=== PATIENT | female | born 1965 | race Caucasian/White ===

== ENCOUNTER 2018-02-19 20:30 | Emergency (ER) | payer MEDICAID ==
[~2018-02-19] VITALS: Ht 160 cm; Wt 113.4 kg
[~2018-02-19 20:30] MED LIST: ARIP1TAB5; CARI-277; PROZAC; [UNRECOGNIZED DRUG - OTHER]
[2018-02-19] MEDS ORDERED: diphenhdrAMINE HCL 25 MG CAP PO ONE (20:45)
[2018-02-19 21:15] LABS: Basophils # (auto) 0.1 uL; Basophils % (auto) 0.7 % (0.0-2.0); Eosinophils # (auto) 0.3 uL; Eosinophils % (auto) 3.3 % (0.0-7.0); Hematocrit 44.8 % (36.0-46.0); Lymphocytes # (auto) 3.4 uL; Lymphocytes % (auto) 35.4 % (10.0-50.0); Mean Corpuscular Hemoglobin 28.9 pg (28.0-32.0); Mean Corpuscular Hgb Conc. 33.4 g/dL (32.0-36.0); Mean Corpuscular Volume 86.3 fL (80.0-100.0); Monocytes # (auto) 0.9 uL; Monocytes % (auto) 9.2 % (0.0-12.0); Neutrophils % (auto) 51.4 % (37.0-80.0); Platelet Count (auto) 215 10^3/uL (140-450); Red Blood Cells 5.19 10^6/uL (4.0-5.20); Red Cell Distribution Width 14.2 % (11.8-14.3); White Blood Cell 9.7 10^3/uL (4.4-10.8)
[2018-02-19 21:16] VITALS: BP 137/77
[2018-02-19 21:31] LABS: Albumin 3.4 g/dL (3.4-5.0); BUN/Creatinine Ratio 23.5; Calcium 8.8 mg/dL (8.5-10.1); Potassium 4.1 mmol/L (3.5-5.1)
[2018-02-19 21:34] LABS: Bilirubin, Total 0.4 mg/dL (0.2-1.0); Total Protein 7.6 g/dL (6.4-8.2)
[2018-02-19] MEDS ORDERED: EPINEPHrine HCL 1 MG/1 ML AMP ONE (21:56)
[2018-02-19] MEDS ORDERED: FAMOTIDINE (10MG/ML) 2ML VL IV ONE (22:00)
[2018-02-19] MEDS ORDERED: LORATADINE 10 MG TAB PO ONE (22:00)
[2018-02-19] MEDS ORDERED: EPINEPHrine HCL 1 MG/1 ML AMP SC ONE (22:00)
[2018-02-19] MEDS ORDERED: SODIUM CHLORIDE 0.9% 1,000 ML IV ONE (22:00)
== END 2018-02-19 23:13 | disposition home or self-care (01) ==
LOC: ER 20:30
DX: T78.40XA Allergy, unspecified, initial encounter (principal); R22.0 Localized swelling, mass and lump, head; X58.XXXA Exposure to other specified factors, initial encounter
CPT/HCPCS: 36415; 70486; 80053; 85025; 96372; 96374; 99284; J0171; J3490; J7030

== ENCOUNTER 2019-06-22 12:47 | Emergency (ER) | payer MEDICAID ==
[~2019-06-22] VITALS: Ht 157.5 cm; Wt 95.3 kg
[2019-06-22 13:38] VITALS: BP 116/74
[2019-06-22 13:54] LABS: Urine Bacteria FEW /hpf (None Seen); Urine Blood 1+ /uL (Negative); Urine Hyaline Cast FEW /lpf (0 - 2); Urine Specific Gravity 1.025 (1.001-1.035); Urine WBC 5 /hpf (0 - 5)
== END 2019-06-22 14:49 | disposition home or self-care (01) ==
LOC: ER 12:47
DX: N39.0 Urinary tract infection, site not specified (principal); M19.90 Unspecified osteoarthritis, unspecified site
CPT/HCPCS: 81001

== ENCOUNTER 2019-08-15 19:38 | Inpatient (IN) | payer MEDICAID ==
[~2019-08-15] VITALS: Ht 157.5 cm; Wt 97.1 kg
[2019-08-15 21:00] LABS: Basophils # (auto) 0 10 ^3/uL (0-0.2); Basophils % (auto) 0.4 % (0.0-2.0); Eosinophils # (auto) 0.1 10 ^3/uL (0-0.8); Eosinophils % (auto) 1.2 % (0.0-7.0); Hematocrit 48.6 % (36.0-46.0); Hemoglobin 16.1 g/dL (12.2-16.2); Lymphocytes # (auto) 2.5 10 ^3/uL (0.4-5.4); Lymphocytes % (auto) 21.7 % (10.0-50.0); Mean Corpuscular Hemoglobin 28.3 pg (28.0-32.0); Mean Corpuscular Hgb Conc. 33.1 g/dL (32.0-36.0); Mean Corpuscular Volume 85.5 fL (80.0-100.0); Monocytes # (auto) 1.1 10 ^3/uL (0-1.3); Monocytes % (auto) 9.5 % (0.0-12.0); Neutrophils # (auto) 7.6 10 ^3/uL (1.6-8.6); Neutrophils % (auto) 67.2 % (37.0-80.0); Nucleated Red Blood Cells % 0.1 %; Platelet Count (auto) 159 10^3/uL (140-450); Red Blood Cells 5.69 10^6/uL (4.0-5.20); Red Cell Distribution Width 13.6 % (11.8-14.3); White Blood Cell 11.3 10^3/uL (4.4-10.8)
[2019-08-15 21:20] LABS: Urine Bacteria NONE SEEN /hpf (None Seen); Urine Blood 1+ /uL (Negative); Urine Mucus FEW (None Seen); Urine Specific Gravity 1.031 (1.001-1.035); Urine WBC 5 /hpf (0 - 5)
[2019-08-15 21:23] LABS: Alanine Aminotransferase 50 U/L (13-56); Albumin 3.5 g/dL (3.4-5.0); Amylase 55 U/L (25-115); Anion Gap 5 (5-15); Aspartate Aminotransferase 31 U/L (15-37); BUN/Creatinine Ratio 22.2; Blood Urea Nitrogen 24 mg/dL (7-18); Calcium 8.9 mg/dL (8.5-10.1); Carbon Dioxide 25 mmol/L (21-32); Chloride 107 mmol/L (98-107); GFR African American 68 mL/min; GFR Non-African American 56 mL/min; Glucose 104 mg/dL (74-106); Lipase 102 U/L (73-393); Potassium 4.1 mmol/L (3.5-5.1); Sodium 137 mmol/L (136-145)
[2019-08-15 21:25] LABS: Alkaline Phosphatase 108 U/L (45-117); Bilirubin, Total 0.4 mg/dL (0.2-1.0)
[2019-08-15] MEDS ORDERED: TAMSULOSIN HYDROCHLORIDE 0.4 MG CAP PO ONE (21:45)
[2019-08-15] MEDS ORDERED: cefTRIAXone 1GM/50ML D5W 50 ML IV ONE (21:45)
[2019-08-15] MEDS ORDERED: KETOROLAC TROMETH 30 MG/ML 1ML VIAL IV ONE (21:45)
[2019-08-15] MEDS ORDERED: SODIUM CHLORIDE 0.9% 1,000 ML IV ONE (21:45)
[2019-08-15] MEDS ORDERED: ACETAMINOPHEN 325 MG TAB PO PRN (22:15)
[2019-08-15] MEDS ORDERED: ONDANSETRON HCL 4 MG/2 ML VIAL IV PRN (22:15)
[2019-08-15] MEDS ORDERED: TEMAZEPAM 15 MG CAP PO PRN (22:15)
[2019-08-16] VITALS (7 sets, daily range): BP systolic 75–134; BP diastolic 45–74
[2019-08-16 06:07] LABS: Basophils # (auto) 0 10 ^3/uL (0-0.2); Basophils % (auto) 0.4 % (0.0-2.0); Eosinophils # (auto) 0.2 10 ^3/uL (0-0.8); Eosinophils % (auto) 2.5 % (0.0-7.0); Hematocrit 43.2 % (36.0-46.0); Hemoglobin 14.3 g/dL (12.2-16.2); Lymphocytes # (auto) 2.3 10 ^3/uL (0.4-5.4); Mean Corpuscular Hemoglobin 28.6 pg (28.0-32.0); Mean Corpuscular Hgb Conc. 33.2 g/dL (32.0-36.0); Mean Corpuscular Volume 86.2 fL (80.0-100.0); Monocytes # (auto) 0.8 10 ^3/uL (0-1.3); Monocytes % (auto) 11.4 % (0.0-12.0); Neutrophils # (auto) 3.8 10 ^3/uL (1.6-8.6); Neutrophils % (auto) 53.7 % (37.0-80.0); Nucleated Red Blood Cells % 0.1 %; Platelet Count (auto) 137 10^3/uL (140-450); Red Blood Cells 5.01 10^6/uL (4.0-5.20); Red Cell Distribution Width 13.4 % (11.8-14.3)
[2019-08-16 06:29] LABS: BUN/Creatinine Ratio 26.3; Calcium 8.7 mg/dL (8.5-10.1); Potassium 3.9 mmol/L (3.5-5.1)
[2019-08-16] MEDS: cefTRIAXone 1GM/50ML D5W 50 ML IV SCH (09:24)
[2019-08-16] MEDS: FAMOTIDINE 20 MG TAB PO SCH ×2 (09:24→21:24)
[2019-08-16] MEDS: HYDROcodone-ACET 5/325MG TAB PO PRN ×2 (09:29→21:24)
[2019-08-16] MEDS ORDERED: MANNITOL FTV 25% 12.5 GM/50 ML 50 ML IV ONE (20:30)
[2019-08-17 05:10] VITALS: BP 97/64
[2019-08-17 06:16] LABS: Urine Bacteria FEW /hpf (None Seen); Urine Blood Negative /uL (Negative); Urine Mucus FEW (None Seen); Urine Specific Gravity 1.022 (1.001-1.035); Urine WBC 3 /hpf (0 - 5)
[2019-08-17 06:20] LABS: Basophils # (auto) 0 10 ^3/uL (0-0.2); Basophils % (auto) 0.5 % (0.0-2.0); Eosinophils # (auto) 0.2 10 ^3/uL (0-0.8); Eosinophils % (auto) 2.7 % (0.0-7.0); Hematocrit 40.6 % (36.0-46.0); Hemoglobin 13.7 g/dL (12.2-16.2); Lymphocytes # (auto) 2.6 10 ^3/uL (0.4-5.4); Lymphocytes % (auto) 38.4 % (10.0-50.0); Mean Corpuscular Hemoglobin 28.8 pg (28.0-32.0); Mean Corpuscular Hgb Conc. 33.8 g/dL (32.0-36.0); Mean Corpuscular Volume 85.1 fL (80.0-100.0); Monocytes # (auto) 0.6 10 ^3/uL (0-1.3); Monocytes % (auto) 9.1 % (0.0-12.0); Neutrophils # (auto) 3.3 10 ^3/uL (1.6-8.6); Neutrophils % (auto) 49.3 % (37.0-80.0); Nucleated Red Blood Cells % 0.2 %; Platelet Count (auto) 133 10^3/uL (140-450); Red Blood Cells 4.77 10^6/uL (4.0-5.20); Red Cell Distribution Width 13.4 % (11.8-14.3); White Blood Cell 6.8 10^3/uL (4.4-10.8)
[2019-08-17 06:34] LABS: Calcium 8.4 mg/dL (8.5-10.1)
[2019-08-17 06:36] LABS: BUN/Creatinine Ratio 35.6
[2019-08-17 08:00] VITALS: BP 104/56
[2019-08-17 08:43] VITALS: BP 104/56
[2019-08-17] MEDS: FAMOTIDINE 20 MG TAB PO SCH (10:26)
[2019-08-17] MEDS: cefTRIAXone 1GM/50ML D5W 50 ML IV SCH (10:26)
[2019-08-17 12:32] VITALS: BP 115/74
[2019-08-17 16:55] VITALS: BP 100/81
[2019-08-17 17:03] VITALS: BP 104/56
== END 2019-08-17 18:23 | disposition home or self-care (01) | DRG 463 ==
LOC: ER 19:38 → OVERFLOW 19:39 → WEST WING 23:01
PROVIDERS: ADMIT Nurse Practitioner; ATTEND Internal Medicine
DX: N13.6 Pyonephrosis (principal); N18.3 Chronic kidney disease, stage 3 (moderate); D72.829 Elevated white blood cell count, unspecified; E66.9 Obesity, unspecified; K44.9 Diaphragmatic hernia without obstruction or gangrene; N20.2 Calculus of kidney with calculus of ureter; K80.20 Calculus of gallbladder without cholecystitis without obstruction; K57.30 Diverticulosis of large intestine without perforation or abscess without bleeding; Z98.84 Bariatric surgery status; Z68.39 Body mass index [BMI] 39.0-39.9, adult; M19.90 Unspecified osteoarthritis, unspecified site; F32.9 Major depressive disorder, single episode, unspecified
CPT/HCPCS: 36415; 74176; 80048; 80053; 81001; 82150; 83690; 84443; 84484; 85025; 87086; 93005; 96365; 96375; G0378; J0696; J1885

== ENCOUNTER → 2024-01-28 | Outpatient (CLI) | payer MEDICAID ==
[~2024-01-28] MED LIST changes: +ARIP10TA8; -ARIP1TAB5
== END | disposition home or self-care (01) ==
LOC: Rad HDHVI 07:58
PROVIDERS: ATTEND Internal Medicine Cardiovascular Disease
DX: Z01.818 Encounter for other preprocedural examination (principal)
CPT/HCPCS: 93306

== ENCOUNTER → 2024-02-04 | Outpatient (CLI) | payer MEDICAID ==
[~2024-02-04] VITALS: Ht 160 cm; Wt 92.5 kg
[~2024-02-04] MED LIST changes: +ADENOSINE 78 MG in GIVE UN-DILUTED 0 ML IV ONE; +ADENOSINE 90 MG/30 ML INJ IV ONE
== END | disposition home or self-care (01) ==
LOC: Rad HDHVI 12:47
PROVIDERS: ATTEND Internal Medicine Cardiovascular Disease
DX: I11.0 Hypertensive heart disease with heart failure (principal); I50.22 Chronic systolic (congestive) heart failure; E78.00 Pure hypercholesterolemia, unspecified
CPT/HCPCS: 78452; 93005; 96374; 96375; A9500; J0153